=== PATIENT | female | born 1950 | race Caucasian/White ===

== ENCOUNTER 2018-07-01 08:58 | Emergency (ER) | payer MEDICARE, OTHER ==
[2018-07-01 09:06] VITALS: BP 142/78
[2018-07-01] MEDS ORDERED: OXYCODONE-ACETAMINOPHEN 5-325 MG TABLET PO ONE (09:46)
--- NOTE | 2018-07-01 09:52 | ER Document Report ---
ED Medical Screen (RME) - General Chief Complaint: Foot Pain Stated Complaint: FOOT INJURY Time Seen by Provider: 07/01/18 09:39 TRAVEL OUTSIDE OF THE [place] IN LAST 30 DAYS: No - HPI Patient complains to provider of: foot pain Onset: Other - This is a 68-year-old female without any relevant past medical history the presents for evaluation of pain and swelling in the left foot. She is noted that this began spontaneously over the last several days she was seen by her primary care physician yesterday for this and diagnosed with plantar fasciitis. The pain is continued despite buying inserts for her shoes so she presented for further evaluation. Denies any trauma to the foot, denies any falls twist pops sprains or strains no fevers chills abdominal pain diarrhea constipation dysuria lightheadedness chest pain shortness of breath or other symptoms. She never had anything like this in the past nothing makes it better or worse. - Related Data Allergies/Adverse Reactions: No Known Allergies Allergy (Verified 07/01/18 09:46) Past Medical History - General Information source: Patient - Social History Chew tobacco use (# tins/day): No Frequency of alcohol use: Rare Drug Abuse: None - Past Medical History Cardiac Medical History: Reports: Hx Hypertension Renal/ Medical History: Denies: Hx Peritoneal Dialysis GI Medical History: Reports: Hx Gastroesophageal Reflux Disease Review of Systems - Review of Systems -: Yes All other systems reviewed and negative Physical Exam - Vital signs Vitals: Temp Pulse Resp BP Pulse Ox 98.6 F 86 17 142/78 H 98 07/01/18 09:03 07/01/18 09:03 07/01/18 09:03 07/01/18 09:03 07/01/18 09:03 - General General appearance: Appears well In distress: None - HEENT Head: Normocephalic Eyes: Normal Conjunctiva: Normal Cornea: Normal Extraocular movements intact: Yes Eyelashes: Normal Pupils: PERRL - Respiratory Respiratory status: No respiratory distress Chest status: Nontender Breath sounds: Normal Chest palpation: Normal - Cardiovascular Rhythm: Regular Heart sounds: Normal auscultation Murmur: No - Abdominal Inspection: Normal Distension: No distension Tenderness: Nontender - Back Back: Normal - Extremities General upper extremity: Normal inspection, Nontender, Normal ROM, Normal strength Foot: Other - The feet are symmetric, the left foot demonstrates tenderness over the dorsal aspect along the second metatarsal as well as the third metatarsal, the plantar aspect of the foot is tender in the midfoot, tender at the base of the first digit, no tenderness along the fifth digit, no tenderness at the calcaneus, no tenderness over the lateral or medial malleolus, there is a strong DP pulse and brisk capillary refill in all 5 digits - Neurological Neuro grossly intact: Yes Cognition: Normal Orientation: AAOx4 [place] Coma Scale Eye Opening: Spontaneous [place] Coma Scale Verbal: Oriented [place] Coma Scale Motor: Obeys Commands [place] Coma Scale Total: 15 Speech: Normal Cranial nerves: Normal Cerebellar coordination: Normal Motor strength normal: LUE, RUE, LLE, RLE - Psychological Associated symptoms: Normal affect Course - Re-evaluation Re-evalutation: 07/01/18 11:53 This woman presents for pain and swelling in her left foot. She notes that she was seen yesterday by primary physician who diagnosed her with plantar fasciitis. The plantar fasciitis has continued to hurt now it is making it difficult for her to walk as a result she presented the emergency room for further investigation. On examination the patient does have point tenderness over the midfoot, will obtain x-rays. X-rays demonstrate some swelling, she does have also a heel spur. Her symptoms are consistent with her diagnosis of plantar fasciitis and heel spur. We will plan for symptom control and discharge with return precautions encouraged follow-up with her primary physician. 07/01/18 14:28 - Vital Signs Vital signs: Temp Pulse Resp BP Pulse Ox 98.6 F 86 17 142/78 H 98 07/01/18 09:03 07/01/18 09:03 07/01/18 09:03 07/01/18 09:03 07/01/18 09:03 Doctor's Discharge - Discharge Clinical Impression: Foot pain, left, Foot swelling, Plantar fasciitis Heel spur Qualifiers: Laterality: left Qualified Code(s): M77.32 - Calcaneal spur, left foot Condition: Good Disposition: HOME, SELF-CARE Instructions: Plantar Fasciitis or Heel Spur ([facility]) Additional Instructions: Your seen today in the emergency department for your foot swelling and pain. It appears that you have a heel spur as well as plantar fasciitis. You will be given a few strong pain killers to use as needed. Use ibuprofen and Tylenol to help with your pain. Use an ice water bottle to roll your foot over while sitting at home. You may roll a tennis ball or a golf ball on the bottom of your foot to help loosen the plantar fascia. You should see an orthopedist or expander about your foot pain in the coming weeks. Return for worsening pain, fevers, chills. Otherwise scheduled appointment with your primary physician in the coming days. Forms: Elevated Blood Pressure
--- NOTE | 2018-07-01 10:38 | RADIOLOGY REPORT (SQ) ---
EXAM DESCRIPTION: FOOT LEFT COMPLETE COMPLETED DATE/TIME: 07/01/2018 10:08 am REASON FOR STUDY: foot pain in the midfoot for 2 days, pain and swelling, unable to bear weight COMPARISON: None. NUMBER OF VIEWS: Three views. TECHNIQUE: AP, lateral and oblique radiographic images acquired of the left foot. LIMITATIONS: None. FINDINGS: MINERALIZATION: Normal. BONES: No acute fracture or dislocation. No worrisome bone lesions. Small plantar calcaneal spur. JOINTS: No effusions. SOFT TISSUES: Diffuse forefoot soft tissue swelling. No foreign body. OTHER: No other significant finding. IMPRESSION: Diffuse forefoot soft tissue swelling. No underlying fracture. TECHNICAL DOCUMENTATION: JOB ID: [id number] [employer]- All Rights Reserved Reading location - IP/workstation name: [email or web address]
[2018-07-01] MEDS ORDERED: HYDROCODONE/ACETAMINOPHEN 5-325 MG (6 TAB/ER DISP) PO PRN (10:43)
== END 2018-07-01 11:34 | disposition home or self-care (01) ==
LOC: ER 08:58
DX: M72.2 Plantar fascial fibromatosis (principal); M77.32 Calcaneal spur, left foot; M79.672 Pain in left foot; I10 Essential (primary) hypertension
CPT/HCPCS: 99283; 73630; A9270 ×2